=== PATIENT | male | born 1990 | race African-American/Black ===

== ENCOUNTER 2016-09-08 01:30 | Emergency (ER) | payer OTHER ==
[~2016-09-08 01:30] MED LIST: ADVAIR 2501 DISK W/D PO; ALBUTEROL17 GM INH; BACTRIM DS TABL1 TA1 PO; FLEXERIL PO; KEFLEX500 M1 PO; KEFLEX500 MG PO; TYLOX 5/500 CAP1 CAP PO; VICODIN 5/1 TAB 5/50 PO
== END 2016-09-08 02:40 | disposition left against medical advice (07) ==
LOC: CED 01:30
DX: Z53.21 Procedure and treatment not carried out due to patient leaving prior to being seen by health care provider (principal)